=== PATIENT | male | born 1955 | race African-American/Black ===

== ENCOUNTER 2018-05-20 12:12 | Outpatient (CLI) | payer OTHER ==
--- NOTE | 2018-05-20 14:47 | RAD ---
LUMBAR SPINE 2 VIEWS: INDICATION: Disability exam. FINDINGS: There are 5 lumbar-type vertebrae. There is moderate multilevel degenerative disk disease most prono unced at L3-4 through L5-S1. There is multilevel moderate to severe facet osteoarthritic change. Sp inal alignment is within normal limits. No acute fracture is evident. IMPRESSION: Moderate to severe multilevel spondylosis of the lumbar spine. POS: [facility]
--- NOTE | 2018-05-20 14:55 | RAD ---
LEFT KNEE TWO VIEWS: HISTORY: Disability examination. FINDINGS: There are marked arthritic changes in the knee. There is spurring of the medial and lateral compartm ents with mild joint space narrowing. More pronounced patellofemoral degenerative spur formation is seen. There is also ossification of the quadriceps tendon insertion. IMPRESSION: Moderate osteoarthritic changes of the knee. POS: [facility]
== END 2018-05-20 12:13 | disposition home or self-care (01) ==
LOC: BICRAD 12:12
PROVIDERS: ATTEND Psychiatry & Neurology Psychiatry
DX: Z02.71 Encounter for disability determination (principal); M17.12 Unilateral primary osteoarthritis, left knee; M47.816 Spondylosis without myelopathy or radiculopathy, lumbar region
CPT/HCPCS: 72100